=== PATIENT | male | born 1985 | race Caucasian/White ===

== ENCOUNTER 2022-08-15 03:55 | Emergency (ER) | payer OTHER ==
--- NOTE | 2022-08-15 04:31 | ED Physician Documentation ---
History of Present Illness - Stated complaint Stated Complaint: LOWER ESOPHOGUS PX - Chief complaint Chief Complaint: Abd Pain - History obtained from History obtained from: Patient - History of Present Illness Timing: Enter time (19:30), Last night Pain level now: 9 Improved by: nothing Worsened by: PO intake - Additonal information Additional information: Patient complains of midline low chest pain, sudden onset immediately after swallowing a piece of roast beef. This was at 7:30 PM last night. Denies nausea, vomiting. Patient says he has had this symptom before, always associated with eating, but it has always resolved without needing medical attention. Review of Systems Cardiac: reports: Chest pain / pressure (midline low chest discomfort) Respiratory: reports: Reviewed and negative GI: denies: Abdominal Pain, Nausea, Vomiting PD PAST MEDICAL HISTORY - Past Medical History Past Medical History: Yes GI: GERD Other Past Medical History: Alopecia. Hemophelia - Past Surgical History Past Surgical History: Yes HEENT: Other - Present Medications Home Medications: Ambulatory Orders Medication Instructions Recorded Confirmed Antihemophil.fviii,Full Length 4,000 units PO DAILY PRN 08/15/22 08/15/22 [Advate] Famotidine 10 mg PO BID 08/15/22 08/15/22 Finasteride [Propecia] 1 mg PO DAILY 08/15/22 08/15/22 - Allergies Allergies/Adverse Reactions: Allergies Allergy/AdvReac Type Severity Reaction Status Date / Time morphine Allergy Itching Verified 08/15/22 04:09 Penicillins Allergy Itching Verified 08/15/22 04:09 - Social History Does the pt smoke?: No Smoking Status: Never smoker ETOH Use: Wine Does the pt have substance abuse?: Yes Substance Use and Type: Marijuana - Immunizations Immunizations are current?: Yes - POLST Patient has POLST: No PD ED PE NORMAL - Vitals Vital signs reviewed: Yes - General General: Alert and oriented X 3, Well developed/nourished, Other (appears uncomfortable at times during H+P) - Cardiac Cardiac: RRR, No murmur - Respiratory Respiratory: No respiratory distress, Clear bilaterally - Abdomen Abdomen: Soft, Non tender, Non distended Results - Vitals Vitals: Vital Signs - 24 hr 08/15/22 04:09 Temperature 36.8 C Heart Rate 73 Respiratory 20 Rate Blood Pressure 132/77 H O2 Saturation 99 Oxygen O2 Source Room air - Labs Labs: Laboratory Tests 08/15/22 08/15/22 05:05 06:10 WBC 5.6 RBC 4.85 Hgb 15.5 Hct 43.6 MCV 89.9 MCH 32.0 H MCHC 35.6 RDW 11.2 L Plt Count 192 MPV 9.7 Neut # (Auto) 3.3 Lymph # (Auto) 1.6 Duc[place]ne # (Auto) 0.5 Eos # (Auto) 0.1 Baso # (Auto) 0.1 Absolute Nucleated RBC 0.00 Nucleated RBC % 0.0 Sodium 136 Potassium 4.2 Chloride 101 Carbon Dioxide 29 Anion Gap 6.0 BUN 24 H Creatinine 0.8 Estimated GFR (MDRD) 111 Glucose 103 H Calcium 10.2 Total Bilirubin 1.2 H AST 17 ALT 18 Alkaline Phosphatase 38 L Total Protein 7.7 Albumin 4.9 Globulin 2.8 Albumin/Globulin Ratio 1.8 Lipase 40 PD Medical Decision Making - ED course Complexity details: reviewed results, re-evaluated patient, considered differential, d/w patient ED course: Patient presents with HPI that is strongly suggestive of a food bolus impaction. CBC and ER abdominal panel are without remarkable/diagnostic findings. He is given 1 mg IV glucagon without improvement. I discussed this case with Dr. Ziegler (on-call surgery), and plan is to take him for upper endoscopy later this morning. Departure - Departure Disposition: ED Transfer to [facility] Clinical Impression: Food bolus obstruction of intestine Condition: Good
[2022-08-15] MEDS ORDERED: GLUCAGON 1 MG/ML VIAL IVP STA (04:46)
[2022-08-15 06:08] LABS: ALBUMIN 4.9 g/dL (3.2-5.5); ALBUMIN/GLOBULIN RATIO 1.8 (1.0-2.2); BILIRUBIN,TOTAL 1.2 mg/dL (0.2-1.0); CALCIUM 10.2 mg/dL (8.5-10.3); CREATININE 0.8 mg/dL (0.6-1.2); POTASSIUM 4.2 mmol/L (3.5-5.0); TOTAL PROTEIN 7.7 g/dL (6.7-8.2)
[2022-08-15 06:13] LABS: BASOPHILS # (AUTO) 0.1 10^3/uL (0.0-0.1); BASOPHILS % (AUTO) 1.1 %; EOSINOPHILS # (AUTO) 0.1 10^3/uL (0.0-0.7); EOSINOPHILS % (AUTO) 2.5 %; HCT - HEMATOCRIT 43.6 % (42.0-52.0); HGB - HEMOGLOBIN 15.5 g/dL (14.0-18.0); LYMPHOCYTES # (AUTO) 1.6 10^3/uL (1.5-3.5); MEAN CORPUSCULAR HGB CONC 35.6 g/dL (32.0-36.0); MEAN CORPUSCULAR VOLUME 89.9 fL (80.0-94.0); MEAN PLATELET VOLUME 9.7 fL (7.4-11.4); MONOCYTES # (AUTO) 0.5 10^3/uL (0.0-1.0); NEUTROPHILS # (AUTO) 3.3 10^3/uL (1.5-6.6); NEUTROPHILS % (AUTO) 59.2 %; PLT - PLATELET COUNT 192 10^3/uL (130-450); RED BLOOD COUNT 4.85 10^6/uL (4.70-6.10); RED CELL DISTRIBUTION WIDTH 11.2 % (12.0-15.0); WHITE BLOOD COUNT 5.6 x10^3/uL (4.8-10.8)
[2022-08-15] MEDS ORDERED: HYDROmorphone 1 MG/ML CARPUJECT IVP STA (08:43)
--- NOTE | 2022-08-15 10:37 | HISTORY & PHYSICAL EXAMINATION ---
Chief Complaint - Chief Complaint Chief Complaint: food stuck last pm. History of Present Illness - Admitted From Admitted From:: ED - History Obtained From Records Reviewed: yes History obtained from: pt and MD Exam Limitations: none - History of Present Illness HPI Comment/Other: While eating beef a piece got stuck in his esophagus last pm. He came to the ED. Medical measures have been tried. He has not improved. He has severe hemophilia. He states he treated himself last pm. Past problems have been possible minimal gi bleeding without need for blood. Other than not being able to swallow he feels well. History - Past Medical History GI: reports: GERD Other Past Medical History: Alopecia. Hemophelia - Past Surgical History HEENT: reports: Other - POLST Patient has POLST: No Meds/Allgy - Home Medications Home Medications: Ambulatory Orders Medication Instructions Recorded Confirmed Antihemophil.fviii,Full Length 4,000 units PO DAILY PRN 08/15/22 08/15/22 [Advate] Famotidine 10 mg PO BID 08/15/22 08/15/22 Finasteride [Propecia] 1 mg PO DAILY 08/15/22 08/15/22 - Allergies Allergies/Adverse Reactions: Allergies Allergy/AdvReac Type Severity Reaction Status Date / Time morphine Allergy Itching Verified 08/15/22 04:09 Penicillins Allergy Itching Verified 08/15/22 04:09 Review of Systems - Other Findings Other Findings: 10 pt ros as above otherwise unremarkable Exam - Vital Signs Reviewed Vital Signs: Yes Vital Signs: Vital Signs x48h Temp Pulse Resp BP Pulse Ox 08/15/22 04:09 36.8 C 73 20 132/77 H 99 - Physical Exam General Appearance: positive: No acute distress, Alert Eyes Bilateral: positive: PERRL, EOMI ENT: positive: No signs of dehydration Neck: positive: Trachea midline Respiratory: positive: No respiratory distress, Breath sounds nml Cardiovascular: positive: Regular rate & rhythm Abdomen: positive: Non-tender, No distention Neurologic/Psychiatric: positive: Oriented x3 Conclusion/Plan - Problem List (1) Food impaction of esophagus Conclusion/Plan: he has failed medical measures. plan egd in attempt to clear food blockage. parq held and consent obtained - Lab Results Fish Bones: 08/15/22 06:10 08/15/22 05:05
[2022-08-15 12:12] VITALS: BP 127/91
--- NOTE | 2022-08-15 12:41 | ED Physician Documentation ---
ED Addendum - Addendum Addendum: 08/15/22 12:39 The patient had been waiting for the OR availability for EGD of a esophageal food impaction. The patient was going to be going to the OR soon when he states he felt an improvement in his discomfort and then was able to swallow sips of water without any pain. Nursing contacted Dr. Sorenson and he advised having the patient try a fluid oral challenge. The patient was able to do this without any discomfort nor vomiting and felt better. At this point Dr. Ziegler states the patient can be discharged and follow-up outpatient. The patient should continue with or augment any acid reducing medication. Soft food only for the next few days. Follow-up outpatient. Disposition: The patient is discharged home in stable condition. Diagnoses: 1. Esophageal food impaction, resolved. 2. Presumed esophagitis.
== END 2022-08-15 12:59 | disposition home or self-care (01) ==
LOC: ED 03:55 → SDS 10:15 → ED 12:59
DX: T18.128A Food in esophagus causing other injury, initial encounter (principal); X58.XXXA Exposure to other specified factors, initial encounter; Y93.89 Activity, other specified
CPT/HCPCS: 36415; 80053; 83690; 85025; 96374; 96375; 99283; 99284; J1170